=== PATIENT | male | born 2005 | race Hispanic/Latino ===

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

== ENCOUNTER 2024-08-28 23:16 | Emergency (ER) | payer OTHER, SELFPAY ==
[2024-08-29] MEDS ORDERED: IBUPROFEN 400 MG TAB ONE (00:40)
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
--- NOTE | 2024-08-29 06:11 | RAD REPORT ---
Clinical Indication: Bed:; PAIN Comparison: None FINDINGS: The 3 views of the left foot show normal alignment without acute fractures or dislocations. The toe i nterphalangeal joints, tarsometatarsal joints, metatarsophalangeal joints and subtalar joint are unremarkable. The talar dome is normal. There is no soft tissue gas or osseous erosive changes noted. There are no radiopaque foreign bodies in the soft tissues. There is no soft tissue swelling. If there is further concern, recommend follow-up radiographs or MRI for complete assessment. IMPRESSION: 1. No acute fractures or dislocation of the left foot. Electronically signed by: Jose Armando Austin MD 08/29/2024 12:54 AM CDT RP Due to temporary technical issues with the PACS/[employer] reporting system, reports are being kanwal d by the in-house radiologist without review as a courtesy to ensure prompt reporting the interpreting radiologist is fully responsible for the content of the report. Transcribed Date/Time: 08/29/2024 6:11 AM
[2024-08-29 13:40] VITALS: O2SAT 100
[2024-08-29 13:42] VITALS: BP 141/69; TEMP 97.6
== END 2024-08-29 00:54 | disposition home or self-care (01) ==
LOC: ER 23:16
DX: M79.672 Pain in left foot (principal); F17.210 Nicotine dependence, cigarettes, uncomplicated; F17.290 Nicotine dependence, other tobacco product, uncomplicated; W05.1XXA Fall from non-moving nonmotorized scooter, initial encounter; Y93.89 Activity, other specified; Y92.9 Unspecified place or not applicable; Z88.0 Allergy status to penicillin
CPT/HCPCS: 99283